=== PATIENT | female | born 2000 | race Caucasian/White ===

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

== ENCOUNTER 2022-03-14 16:13 | Emergency (ER) | payer OTHER, SELFPAY ==
[2022-03-14 16:20] VITALS: BP 114/72; PULSE 78; RESP 14; TEMP 36.7; O2SAT 98; BMI 20.1
--- NOTE | 2022-03-14 18:43 | CTR_ITS ---
PROCEDURE INFORMATION: Exam: CT Head Without Contrast Exam date and time: 03/14/2022 7:09 PM Age: 21 years old Clinical indication: Pain; Headache; Other: Base of skull; Additional info: Head injury-- patient had a case of drinks fall on her head-- vomiting afterward TECHNIQUE: Imaging protocol: Computed tomography of the head without contrast. Radiation optimization: All CT scans at this facility use at least one of these dose optimization techniques: automated exposure control; mA and/or kV adjustment per patient size (includes targeted exams where dose is matched to clinical indication); or iterative reconstruction. COMPARISON: No relevant prior studies available. RADIATION DOSE METRICS: Total DLP (mGy-cm): 1041.78 FINDINGS: Brain: Normal. No hemorrhage. Unremarkable white matter. No mass effect. Cerebral ventricles: No ventriculomegaly. Paranasal sinuses: Visualized sinuses are unremarkable. No fluid levels. Mastoid air cells: Visualized mastoid air cells are well aerated. Bones/joints: Unremarkable. No acute fracture. Soft tissues: Unremarkable. CT/CT head wo con* [id number] IMPRESSION: No acute intracranial abnormality.
--- NOTE | 2022-03-14 18:43 | CTR_ITS ---
PROCEDURE INFORMATION: Exam: CT Cervical Spine Without Contrast Exam date and time: 03/14/2022 7:12 PM Age: 21 years old Clinical indication: Injury or trauma; Other: Case of drinks fell on back of head; Work related; Blunt trauma; Prior surgery; Surgery date: 6+ months; Surgery type: Patient had case of drinks-- fall on back of head. Vomited afterwards; Additional info: Head injury TECHNIQUE: Imaging protocol: Computed tomography of the cervical spine without contrast. Radiation optimization: All CT scans at this facility use at least one of these dose optimization techniques: automated exposure control; mA and/or kV adjustment per patient size (includes targeted exams where dose is matched to clinical indication); or iterative reconstruction. COMPARISON: CT head wo con* [id number] 03/14/2022 7:09 PM RADIATION DOSE METRICS: Total DLP (mGy-cm): 160.37 FINDINGS: Bones/joints: No acute fracture. Normal alignment. Discs/Spinal canal/Neural foramina: No significant disc protrusion. No severe spinal canal stenosis. No significant neural foraminal narrowing. Lungs: Lung apices are normal. Lymph nodes: Prominent cervical lymph nodes are most likely reactive. Soft tissues: Unremarkable. CT/CT cervical spin wo con* [id number] IMPRESSION: No fracture or acute finding.
--- NOTE | 2022-03-14 18:55 | W.ED.HEATRA ---
HPI - Head Injury General: Chief complaint: Head Injury Stated complaint: head injury Time Seen by Provider: 03/14/22 18:55 Source: patient Mode of arrival: ambulatory Limitations: no limitations History of Present Illness: Patient is a 21-year-old female presents to ED today for Worker's Comp. incident regarding head injury. Patient states just prior to arrival she was working at [employer] when a bundle of 8 two liter soda bottles fell on top of her head. No LOC. She does complain of a headache and some neck pain. She also states she is having a little bit of blurry vision and confusion. She answers all questions appropriately. She is ambulatory without difficulty here. Complaint: head injury Onset (ago): hour(s) Mechanism of Injury: work related injury Place: work Loss of Consciousness: no Severity: moderate Radiation: none Other Injuries: none Associated symptoms: Reports no associated symptoms, confusion and neck pain; Deny vertigo Review of Systems Eyes: Reports: change in vision; Denies: blurry vision, photophobia, floaters or seeing flashes Musc: Reports: neck pain; Denies: back pain, extremity pain or joint pain Neuro: Reports: headache(s) and confusion; Denies: numbness in extremities, weakness in extremities, sensory changes, lack of coordination, difficulty walking, frequent falls, dizziness, vertigo, behavioral changes, Slurred speech present, difficulty communicating thoughts, seizure-like activity or involuntary movements PFS ED PFSH: Medical History Psychiatric care Social History Smoking and tobacco status: current every day smoker cigarettes Packs smoked per day: 0.25 Years cigarettes smoked: 6 and e-cigarettes E-Cigarette Details: e-cigarette and with nicotine Quit status (tobacco): has tried quititng Number of times tried to quit tobacco: 3 Second hand smoke exposure: Yes Female Reproductive History: Date of last menstrual period: 04/05/20 Physical Exam Const: COMMON NORMALS: no acute distress, average body habitus, patient oriented x3, no limitations, healthy appearing, alert and well nourished GENERAL APPEARANCE: cooperative ORIENTATION/CONSCIOUSNESS: Yes awake, Yes oriented to person, Yes oriented to place and Yes oriented to time HENMT: COMMON NORMALS: normocephalic and atraumatic HEAD & SCALP: normal to inspection, normocephalic and atraumatic FACE & SINUS: normal facial exam Eye: COMMON NORMALS: Equal, round and reactive pupils present and EOMs intact bilaterally GENERAL EYE: appearance normal, both eyes and all related structures and normal light reflex VISUAL ACUITY: Yes acuity normal VISUAL CERON: No peripheral vision loss and No central vision loss PUPIL: Yes Equal, round and reactive pupils present DIRECT OPHTHALMOSCOPY: Yes normal light reflex Neck/C-Spine: COMMON NORMALS: full ROM CERVICAL SPINE: Yes cervical ROM normal, Yes pain with cervical ROM, No Cervical spine tenderness, No step off deformity and No Paracervical muscle tenderness Resp: COMMON NORMALS: normal respiratory effort and clear to auscultation bilaterally AUSCULTATION: clear to auscultation bilaterally Cardio: COMMON NORMALS: regular rate and regular rhythm RATE: regular rate RHYTHM: regular rhythm Neuro: CINTHIA COMA SCALE: document GCS findings Cinthia coma scale eye opening: Spontaneous [place] coma scale verbal response: Orientated Cinthia coma scale motor response: Obey commands Cinthia coma scale total score: 15 COMMON NORMALS: patient oriented x3, CN's II-XII intact bilaterally, moves all extremities, no focal motor deficits, no sensory deficits noted and gait normal SENSORIUM/ORIENTATION: Yes alert, Yes oriented to person, Yes oriented to place and Yes oriented to time COORDINATION/BALANCE: [id number] test normal SPEECH: speech normal GAIT: Yes Normal gait present COORDINATION: [id number] test normal Skin: TRAUMA: no lacerations or abrasions Course Vital Signs: Vital signs: Vital Signs Temperature 98.1 F 03/14/22 20:06 Pulse Rate 78 03/14/22 20:06 Respiratory Rate 14 03/14/22 20:06 Blood Pressure 114/72 03/14/22 20:06 Pulse Oximetry 98 03/14/22 20:06 Oxygen Delivery Me thod 03/14/22 20:06 MDM - Head Injury Medcial Decision Making CTs negative. Recommend she follow up with Workers Comp as directed. Return to ED precautions given. Lab Data Radiology Impressions Cervical Spine CT 03/14/22 18:43 IMPRESSION: No fracture or acute finding. Head CT 03/14/22 18:43 IMPRESSION: No acute intracranial abnormality. Discharge Plan Discharge Patient Disposition: Home Clinical Impression: Minor closed head injury Contusion of scalp Qualifiers: Encounter type: initial encounter Qualified Code(s): S00.03XA - Contusion of scalp, initial encounter Condition: Stable Prescriptions: No Action medroxyprogesterone [Depo-Provera] 150 mg/mL suspension IM .Q 3 Months bupropion HCl [Wellbutrin XL] 150 mg tablet extended release 24 hr 150 mg PO QAM Qty: 30 2RF fluoxetine [Prozac] 40 mg capsule 40 mg PO DAILY Qty: 30 2RF trazodone 50 mg tablet 100 mg PO .HS PRN (Reason: insomnia) Qty: 60 2RF hydroxyzine HCl 10 mg tablet 10 mg PO TID PRN (Reason: anxiety) Qty: 90 2RF Discharge Orders: Discharge ED (Routine); Ordered 03/14/22 Ordered By: Elham Mtz Activity Restrictions/Additional Instructions: Please follow-up with Worker's Comp. as directed. 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
[2022-03-14 20:06] VITALS: BP 114/72; PULSE 78; RESP 14; TEMP 36.7; O2SAT 98
== END 2022-03-14 20:30 | disposition home or self-care (01) ==
PROVIDERS: Emergency Provider Physician Assistant
DX: S00.03XA Contusion of scalp, initial encounter (principal); S09.8XXA Other specified injuries of head, initial encounter; F17.210 Nicotine dependence, cigarettes, uncomplicated; W20.8XXA Other cause of strike by thrown, projected or falling object, initial encounter; Y99.0 Civilian activity done for income or pay; Y92.511 Restaurant or cafe as the place of occurrence of the external cause
CPT/HCPCS: 70450; 72125; 99284

== ENCOUNTER 2022-06-16 11:36 | Emergency (ER) | payer MEDICAID, SELFPAY ==
[2022-06-16 11:41] VITALS: BP 114/74; PULSE 99; RESP 14; TEMP 37; O2SAT 99; BMI 24.3
--- NOTE | 2022-06-16 12:09 | ED_ITS ---
HPI - Nausea/Vomiting/Diarrhea General: Chief complaint: Nausea/Vomiting/Diarrhea Stated complaint: n/v post new medication Time Seen by Provider: 06/16/22 12:09 Source: patient History of Present Illness: 21-year-old female presents with complaints initially of having some diarrhea this morning and then she took her first dose of the new medicine and started on, Zoloft 50 mg. After this she started getting nauseous had a couple episodes of vomiting and still nauseous now. She denies any medication melena hematemesis Shine was no fever no dysuria urgency or frequency. No productive cough. MD elicited complaint: nausea, vomiting and diarrhea Onset (ago): hour(s) Description of vomiting: food contents and watery Description of diarrhea: watery and semi-solid Associated nausea: Yes Associated abdominal pain: Yes Location of pain: Diffuse Severity: moderate Quality: cramping Exacerbating factors: none Relieving factors: none Context: new medication Associated symtoms: Reports anxiety, anorexia and nausea; Denies bloating, change in vision, chest pain, cough, diaphoresis, decreased urine output, dizziness, dysuria, epistaxis, fatigue, fecal incontinence, fevers/chills, headache(s), malaise, myalgias, numbness, palpitations, rash, short of breath, syncope, tenesmus, tinnitus or weakness Review of Systems Const: Denies: fever(s), chills, fatigue, malaise or diaphoresis Eyes: Denies: change in vision ENMT: Denies: tinnitus or epistaxis Card: Denies: chest pain, palpitations or syncope Resp: Denies: dyspnea, productive cough or non-productive cough GI: Reports: abdominal pain, nausea, vomiting and diarrhea; Denies: bloating or fecal incontinence : Denies: dysuria Skin/Breast: Denies: rash or pruritus Neuro: Denies: headache(s) or dizziness Psych: Reports: anxiety PFSH ED PFSH: Medical History Generalized anxiety disorder Major depressive disorder, recurrent episode with anxious distress Marijuana smoker, episodic Nicotine dependence, cigarettes, uncomplicated Post-traumatic stress disorder, chronic Psychiatric care Social History Smoking and tobacco status: current every day smoker cigarettes Packs smoked per day: 0.25 Years cigarettes smoked: 6 and e-cigarettes E-Cigarette Details: e-cigarette and with nicotine Quit status (tobacco): has tried quititng Number of times tried to quit tobacco: 3 Second hand smoke exposure: Yes Female Reproductive History: Date of last menstrual period: 04/05/20 Physical Exam Const: COMMON NORMALS: no acute distress GENERAL APPEARANCE: cooperative and comfortable ORIENTATION/CONSCIOUSNESS: Yes awake, Yes oriented to person, Yes oriented to place and Yes oriented to time HENMT: COMMON NORMALS: normocephalic, atraumatic and hearing grossly normal bilaterally HEAD & SCALP: normocephalic and atraumatic Resp: COMMON NORMALS: normal respiratory effort, No retractions, No use of accessory muscles and clear to auscultation bilaterally AUSCULTATION: clear to auscultation bilaterally Cardio: COMMON NORMALS: regular rate, regular rhythm and No murmurs present (Cardio) RATE: regular rate RHYTHM: regular rhythm GI: COMMON NORMALS: Soft to palpation and No hepatosplenomegaly present AUSCULTATION: Yes normoactive bowel sounds PALPATION: Yes Soft to palpation, No Tenderness to palpation present (GI), No Guarding due to palpation present (GI) and Yes No hepatosplenomegaly present Extremity: COMMON NORMALS: normal to inspection, capillary refill normal, no clubbing, cyanosis or edema, no calf tenderness and no pedal edema Neuro: SENSORIUM/ORIENTATION: Yes oriented to person, Yes oriented to place and Yes oriented to time Skin: COMMON NORMALS: no rashes or lesions noted GENERAL SKIN EXAM: no rashes or lesions noted Course Vital Signs: Vital signs: Vital Signs Temperature 98.6 F 06/16/22 13:00 Pulse Rate 99 06/16/22 13:00 Respiratory Rate 14 06/16/22 13:00 Blood Pressure 114/74 06/16/22 13:00 Pulse Oximetry 99 06/16/22 13:00 Oxygen Delivery Me thod 06/16/22 11:41 MDM - Nausea/Vomiting/Diarrhea Medical Decision Making Suspect patient had a gastroenteritis and it was exacerbated by taking the Zoloft. Vital signs are stable. She had some nausea while she is here but not actually vomited anything we will discharge her home with antiemetics hold off on the Zoloft for a week and then restart by taking 25 mg half tablet daily for 6 to 8 days then increase to a full tablet daily follow-up with primary care clear liquid diet for the remainder of today. Medical Records I reviewed the patient's medical records. Lab Data I reviewed the patient's lab results. Discharge Plan Discharge Patient Disposition: Home Clinical Impression: Gastroenteritis, Side effect of medication Condition: Stable Prescriptions: New promethazine 25 mg tablet 25 mg PO Q6H PRN (Reason: nausea and vomiting) Qty: 20 0RF No Action medroxyprogesterone [Depo-Provera] 150 mg/mL suspension IM .Q 3 Months sertraline [Zoloft] 50 mg tablet 50 mg PO .morning Qty: 30 1RF Rx Instructions: Take one tablet every morning acetaminophen [Tylenol Extra Strength] 500 mg tablet 500 mg PO Q6H PRN ibuprofen 200 mg tablet 400 mg PO Q6H PRN Nauzene Upset Stomach-Nausea 230 mg tablet,chewable PO PRN hydroxyzine HCl 25 mg tablet 25 mg PO DAILY PRN (Reason: anxiety) Qty: 30 1RF Rx Instructions: Take one tablet daily as needed for anxiety Discharge Orders: Discharge ED (Routine); Ordered 06/16/22 Ordered By: Jairon Stephen Discharge Diet: Clear Liquid Discharge Activity: Increase activity as tolerated Patient Instructions: Opioid Safety, Pain Management Activity Restrictions/Additional Instructions: Based on your presentation history believe you had a stomach flu that because of the diarrhea in the morning this was exacerbated by taking the Zoloft. The main side effect of Zoloft initially when people start it is GI upset. Usually the GI side effects from Zoloft resolve the longer a person is taking the medication. Clear liquid diet for 24 to 48 hours and advance as tolerated. Use the promethazine as needed for nausea and vomiting. Hold Zoloft for 1 week and then resume at half a tablet (25 mg) daily for 6 to 8 days then increase to full tablet daily. 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
[2022-06-16] MEDS: promethazine 25 mg/mL SDV 1 mL IM (12:35)
[2022-06-16 13:00] VITALS: BP 114/74; PULSE 99; RESP 14; TEMP 37; O2SAT 99
== END 2022-06-16 13:05 | disposition home or self-care (01) ==
PROVIDERS: Emergency Provider Family Medicine
DX: K52.9 Noninfective gastroenteritis and colitis, unspecified (principal); T43.225A Adverse effect of selective serotonin reuptake inhibitors, initial encounter; F17.210 Nicotine dependence, cigarettes, uncomplicated
CPT/HCPCS: 96372; 99284; J2550

== ENCOUNTER 2022-09-30 15:07 | Outpatient (CLI) | payer MEDICAID, SELFPAY ==
--- NOTE | 2022-09-30 | XRR_ITS ---
PROCEDURE INFORMATION: Exam: XR Chest Exam date and time: 09/30/2022 3:17 PM Age: 22 years old Clinical indication: Cough; Additional info: Chronic cough TECHNIQUE: Imaging protocol: Radiologic exam of the chest. Views: 2 views. COMPARISON: CR (CHEST, ) 05/15/2021 4:22 AM FINDINGS: Lungs: Nipple shadow is again seen projecting over the left lower lung. No consolidation. Pleural spaces: Unremarkable. No pleural effusion. No pneumothorax. Heart/Mediastinum: Unremarkable. No cardiomegaly. Bones/joints: Unremarkable. XR/XR chest 2V* [id number] IMPRESSION: No acute findings.
== END 2022-09-30 15:08 | disposition home or self-care (01) ==
PROVIDERS: Visit Provider Otolaryngology
DX: R05.3 Chronic cough (principal)
CPT/HCPCS: 71046

== ENCOUNTER 2022-12-31 12:46 | Emergency (ER) | payer MEDICAID, SELFPAY ==
[2022-12-31 12:52] VITALS: BP 95/63; PULSE 96; RESP 14; TEMP 36.7; O2SAT 97; BMI 17.9
--- NOTE | 2022-12-31 13:04 | XRR_ITS ---
PROCEDURE INFORMATION: Exam: XR Left Foot Exam date and time: 12/31/2022 12:09 PM Age: 22 years old Clinical indication: Injury or trauma; Fall; Sprain or strain; Foot; Left; Additional info: Pain/swelling/injury TECHNIQUE: Imaging protocol: Radiologic exam of the left foot. Views: 3 or more views. COMPARISON: No relevant prior studies available. FINDINGS: Bones/joints: Questionable nondisplaced fracture at the base of the 1st metatarsal versus prominent nutrient channel. Otherwise, the rest of the osseous structures of the foot are preserved. Soft tissues: Soft tissue swelling around the dorsal and midfoot. XR/XR foot LT min 3V* [id number] IMPRESSION: Questionable nondisplaced fracture at the base of the 1st metatarsal versus prominent nutrient channel. Correlate for point tenderness.
--- NOTE | 2022-12-31 13:41 | ED_ITS ---
HPI - Extremity Injury (Lower) General: Chief Complaint: Extremity Injury, Lower Stated Complaint: left foot injury Time Seen by Provider: 12/31/22 12:47 Source: patient Mode of arrival: wheelchair Limitations: no limitations History of Present Illness: Patient is a 22-year-old female presents to ED today for evaluation of a left foot injury. Patient states she was giving a young child a piggyback ride when she somehow fell and twisted the left foot. She has noticed pain and swelling to the dorsum of her foot since. Limited weightbearing secondary to pain. No other injuries or complaints at this time. complaint: foot injury Onset (ago): day(s) (yesteday) Injury: Left: foot Place: home Severity: moderate Relieving factors: immobilization Exacerbating factors: weight bearing, movement and palpation Context: fall Associated symptoms: Reports inability to bear weight Other symptoms: none Review of Systems Musc: Reports: extremity pain (L foot) and extremity swelling (L foot); Denies: joint redness or joint warmth Neuro: Denies: numbness in extremities or sensory changes [facility] ED PFSH: Medical History Bipolar disorder, current episode depressed, severe, without psychotic features Generalized anxiety disorder Marijuana smoker, episodic Nicotine dependence, cigarettes, uncomplicated Post-traumatic stress disorder, chronic Psychiatric care Social History Smoking and tobacco status: current every day smoker cigarettes Packs smoked per day: 0.25 Years cigarettes smoked: 6 and e-cigarettes E-Cigarette Details: e-cigarette and with nicotine Quit status (tobacco): has tried quititng Number of times tried to quit tobacco: 3 Second hand smoke exposure: Yes Physical Exam Const: COMMON NORMALS: no acute distress, average body habitus, no limitat ions, healthy appearing, alert and well nourished Extremity: COMMON NORMALS: capillary refill normal GENERAL: Yes normal exam except as noted LEFT LOWER EXTREMITY: Yes foot & digits OTHER: pt with pain and swelling throughout dorsum of L foot; most of pain seems to be medial; no obvious bony deformities noted; no toe/digit pain; NV intact Neuro: COMMON NORMALS: moves all extremities, no focal motor deficits and no sensory deficits noted SENSORIUM/ORIENTATION: Yes alert Skin: TRAUMA: no lacerations or abrasions Course Vital Signs: Vital signs: Vital Signs Temperature 98.1 F 12/31/22 12:52 Pulse Rate 96 12/31/22 12:52 Respiratory Rate 14 12/31/22 12:52 Blood Pressure 95/63 12/31/22 12:52 Pulse Oximetry 97 12/31/22 12:52 Oxygen Delivery Me thod Room Air 12/31/22 12:52 MDM - Extremity Injury (Lower) Medical Decision Making XR showing questionable nondisplaced fracture at the base of her first metatarsal. She is tender here on exam therefore she will be splinted and we will have her follow-up with orthopedics/podiatry. Lab Data Radiology Impressions Foot X-Ray 12/31/22 13:04 IMPRESSION: Questionable nondisplaced fracture at the base of the 1st metatarsal versus prominent nutrient channel. Correlate for point tenderness. Discharge Plan Discharge Patient Disposition: Home Clinical Impression: Closed fracture of first metatarsal bone Qualifiers: Encounter type: initial encounter Fracture alignment: nondisplaced Laterality: left Qualified Code(s): S92.315A - Nondisplaced fracture of first metatarsal bone, left foot, initial encounter for closed fracture Condition: Stable Prescriptions: No Action medroxyprogesterone [Depo-Provera] 150 mg/mL suspension IM .Q 3 Months quetiapine [Seroquel] 25 mg tablet 25 mg PO BEDTIME Qty: 14 1RF Rx Instructions: Take one tablet at bedtime acetaminophen [Tylenol Extra Strength] 500 mg tablet 500 mg PO Q6H PRN ibuprofen 200 mg tablet 400 mg PO Q6H PRN Nauzene Upset Stomach-Nausea 230 mg tablet,chewable PO PRN hydroxyzine HCl 25 mg tablet 25 mg PO DAILY PRN (Reason: anxiety) Qty: 30 1RF Rx Instructions: Take one tablet daily as needed for anxiety promethazine 25 mg tablet 25 mg PO Q6H PRN (Reason: nausea and vomiting) Qty: 20 0RF Discharge Orders: Discharge ED (Routine); Ordered 12/31/22 Ordered By: Elham Mtz Referrals: Fidelia Herr DO [Primary Care Provider] - Patient Instructions: Foot Fracture in Adults (ED) Activity Restrictions/Additional Instructions: As we discussed no weightbearing and stay in your splint until told otherwise by orthopedics/podiatry. Case management should be reaching out to you shortly to help set you up with this appointment. 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
--- NOTE | 2023-01-01 07:38 | DCPLANNER ---
Addendum entered by Genesis Alvarez 01/03/23 13:06: Patient had a follow up appointment scheduled with ortho - patient did attend appointment. Original Note: energy project manager had message to schedule a follow up appointment for patient with podiatry. energy project manager sent patients information to the front office staff at podiatry. Patients information will be printed and reviewed. Clinic will call patient with appointment information.
== END 2022-12-31 14:40 | disposition home or self-care (01) ==
PROVIDERS: Emergency Provider Physician Assistant; PCP Family Medicine
DX: S92.315A Nondisplaced fracture of first metatarsal bone, left foot, initial encounter for closed fracture (principal); F17.210 Nicotine dependence, cigarettes, uncomplicated; X50.1XXA Overexertion from prolonged static or awkward postures, initial encounter
CPT/HCPCS: 73630; 99283; E0114

== ENCOUNTER → 2023-01-02 10:12 | Outpatient (BNVA) | payer MEDICAID, SELFPAY | PROVIDERS: PCP Family Medicine; Visit Provider Podiatrist Foot & Ankle Surgery | DX: S92.315A Nondisplaced fracture of first metatarsal bone, left foot, initial encounter for closed fracture (principal); R60.9 Edema, unspecified; W18.30XA Fall on same level, unspecified, initial encounter; X50.1XXA Overexertion from prolonged static or awkward postures, initial encounter | CPT/HCPCS: 73630 ==

== ENCOUNTER 2023-01-02 11:53 | Outpatient (CLI) | payer MEDICAID, SELFPAY | END 2023-01-02 11:54 | disposition home or self-care (01) | LOC: SPT 11:55 | PROVIDERS: PCP Family Medicine; Visit Provider Podiatrist Foot & Ankle Surgery | DX: Z46.89 Encounter for fitting and adjustment of other specified devices (principal); M79.672 Pain in left foot | CPT/HCPCS: 97760; L4361 ==

== ENCOUNTER → 2023-01-24 10:42 | Outpatient (BNVA) | payer MEDICAID, SELFPAY | PROVIDERS: PCP Family Medicine; Visit Provider Podiatrist Foot & Ankle Surgery | DX: S92.315A Nondisplaced fracture of first metatarsal bone, left foot, initial encounter for closed fracture (principal); W01.0XXA Fall on same level from slipping, tripping and stumbling without subsequent striking against object, initial encounter; R60.9 Edema, unspecified | CPT/HCPCS: 73630 ==

== ENCOUNTER → 2023-02-07 10:42 | Outpatient (BNVA) | payer MEDICAID, SELFPAY | PROVIDERS: PCP Family Medicine; Visit Provider Podiatrist Foot & Ankle Surgery | DX: S92.315D Nondisplaced fracture of first metatarsal bone, left foot, subsequent encounter for fracture with routine healing (principal); X58.XXXD Exposure to other specified factors, subsequent encounter | CPT/HCPCS: 73630; 99213 ==

== ENCOUNTER → 2023-03-14 10:36 | Outpatient (BNVA) | payer MEDICAID, SELFPAY | PROVIDERS: PCP Family Medicine; Visit Provider Podiatrist Foot & Ankle Surgery | DX: S92.315D Nondisplaced fracture of first metatarsal bone, left foot, subsequent encounter for fracture with routine healing; X58.XXXD Exposure to other specified factors, subsequent encounter; R60.9 Edema, unspecified | CPT/HCPCS: 73630; 99213 ==

== ENCOUNTER 2023-04-26 15:52 | Emergency (ER) | payer SELFPAY ==
[2023-04-26 15:54] VITALS: BP 112/76; PULSE 95; RESP 18; TEMP 36.8; O2SAT 100; BMI 18.3
--- NOTE | 2023-04-26 16:04 | W.ED.ARRPALP ---
HPI - Arrhythmia/Palpitations General: Chief Complaint: Arrhythmia/Palpitations Stated Complaint: tachycardia Time Seen by Provider: 04/26/23 15:55 Source: patient Mode of arrival: ambulatory History of Present Illness: 22-year-old female presented to the emergency room via one of the urgent care clinic swelling. She presented to the outlying clinic with complaints of a rapid racing heart rate. She has had this past and had work-up before Holter monitor done recently showed sinus tachycardia. She had been drinking heavily the night before. She is complaining some mild chest tightness she denies any hematochezia melena hematemesis or coffee-ground emesis. MD complaint: rapid heart beat and heart racing Onset (ago): hour(s) Duration: constant Severity: mild Context: occurred during rest Arrhythmia history: other (Sinus tachycardia) Associated symptoms: Deny anxiety, cough, diaphoresis, muscle cramps, nausea, paresthesias, pre-syncope, sense of impending doom, short of breath, syncope or vomiting Review of Systems Const: Denies: fever(s), chills, fatigue, malaise or diaphoresis ENMT: Denies: throat pain, ear or mastoid pain, nasal discharge or nasal congestion Card: Reports: palpitations; Denies: chest pain, edema, syncope or pre-syncope Resp: Denies: dyspnea, productive cough or non-productive cough GI: Denies: abdominal pain, nausea or vomiting : Denies: flank pain, difficulty voiding, dysuria, urinary frequency or urinary urgency Musc: Denies: neck pain, back pain or muscle cramps Skin/Breast: Denies: rash or pruritus Psych: Denies: anxiety [facility] ED PFSH: Medical History Bipolar disorder, current episode depressed, severe, without psychotic features Generalized anxiety disorder Marijuana smoker, episodic Nicotine dependence, cigarettes, uncomplicated Post-traumatic stress disorder, chronic Psychiatric care Social History Smoking and tobacco status: current every day smoker cigarettes Packs smoked per day: 0.25 Years cigarettes smoked: 6 and e-cigarettes E-Cigarette Details: e-cigarette and with nicotine Quit status (tobacco): has tried quititng Number of times tried to quit tobacco: 3 Second hand smoke exposure: Yes Physical Exam Const: GENERAL APPEARANCE: cooperative and comfortable ORIENTATION/CONSCIOUSNESS: Yes awake, Yes oriented to person, Yes oriented to place and Yes oriented to time HENMT: COMMON NORMALS: normocephalic, atraumatic and hearing grossly normal bilaterally HEAD & SCALP: normocephalic and atraumatic Resp: COMMON NORMALS: normal respiratory effort, No retractions, No use of accessory muscles and clear to auscultation bilaterally AUSCULTATION: clear to auscultation bilaterally Cardio: COMMON NORMALS: regular rhythm and No murmurs present (Cardio) RATE: tachycardic RHYTHM: regular rhythm GI: COMMON NORMALS: Soft to palpation and No hepatosplenomegaly present AUSCULTATION: Yes normoactive bowel sounds PALPATION: Yes Soft to palpation, No Tenderness to palpation present (GI), No Guarding due to palpation present (GI) and Yes No hepatosplenomegaly present Extremity: COMMON NORMALS: normal to inspection, capillary refill normal, no clubbing, cyanosis or edema, no calf tenderness and no pedal edema Neuro: SENSORIUM/ORIENTATION: Yes oriented to person, Yes oriented to place and Yes oriented to time Skin: COMMON NORMALS: no rashes or lesions noted GENERAL SKIN EXAM: no rashes or lesions noted Course Vital Signs: Vital signs: Vital Signs Temperature 98.2 F 04/26/23 15:54 Pulse Rate 100 04/26/23 18:22 Respiratory Rate 16 04/26/23 18:22 Blood Pressure 115/74 04/26/23 18:22 Pulse Oximetry 100 04/26/23 18:22 Oxygen Delivery Me thod Room Air 04/26/23 17:10 MDM - Arrhythmia/Palpitations Medical Decision Making Sinus tachycardia suspect of some volume depletion associated alcohol use is also probably triggered it. Patient has had this in the past work-up has been benign no acute changes in her labs or her EKG. Patient given IV fluids she is improved cautioned against alcohol stimulating drinks also consider abstaining from marijuana. Discharge home with follow-up with primary care as needed. Medical Records I reviewed the patient's medical records. Lab Data I reviewed the patient's lab results. 04/26/23 15:44 04/26/23 15:44 Laboratory Results WBC 12.42 10^3/uL (4.5-13.0) 04/26/23 15:44 RBC 4.46 10^6/uL (3.85-5.65) 04/26/23 15:44 Hgb 12.60 g/dL (12.4-14.8) 04/26/23 15:44 Hct 38.2 % (36-47) 04/26/23 15:44 MCV 85.7 fl (85-98) 04/26/23 15:44 MCH 28.3 pg (27-33) 04/26/23 15:44 MCHC 33.0 g/dL (30-55) 04/26/23 15:44 RDW 12.4 % (12.1-15.1) 04/26/23 15:44 Plt Count 348 10^3/cmm (157-399) 04/26/23 15:44 MPV 9.8 fL (7.4-10.4) 04/26/23 15:44 Neut % (Auto) 73.5 % 04/26/23 15:44 Lymph % (Auto) 20.2 % 04/26/23 15:44 [place] % (Auto) 4.9 % 04/26/23 15:44 Eos % (Auto) 0.2 % 04/26/23 15:44 Baso % (Auto) 0.8 % 04/26/23 15:44 Neut # (Auto) 9.12 10^3/uL (1.8-8.0) H 04/26/23 15:44 Lymph # (Auto) 2.5 10^3/uL (1.5-6.5) 04/26/23 15:44 [place] # (Auto) 0.6 10^3/uL (0.2-0.9) 04/26/23 15:44 Eos # (Auto) 0.0 10^3/uL (0.0-0.8) 04/26/23 15:44 Baso # (Auto) 0.1 10^3/uL (0.0-0.1) 04/26/23 15:44 Nucleated RBC % (auto) 0 % 04/26/23 15:44 Nucleated RBCs # 0.0 /100WBC 04/26/23 15:44 Sodium 139 mmol/L (136-145) 04/26/23 15:44 Potassium 3.3 mmol/L (3.5-5.1) L 04/26/23 15:44 Chloride 104 mmol/L (98-107) 04/26/23 15:44 Carbon Dioxide 21 mmol/L (22-29) L 04/26/23 15:44 Anion Gap 17.3 (5-19) 04/26/23 15:44 BUN 10 mg/dL (6-20) 04/26/23 15:44 Creatinine 0.8 mg/dL (0.5-0.9) 04/26/23 15:44 GFR Calculation 91.4 mL/min (90-130) 04/26/23 15:44 Glucose 149 mg/dL (65-115) H 04/26/23 15:44 Calculated Osmolality 290 mOsm/kg (285-295) 04/26/23 15:44 Calcium 9.1 mg/dL (8.5-10.5) 04/26/23 15:44 Total Bilirubin 0.5 mg/dL (0.15-1.2) 04/26/23 15:44 AST 16 U/L (0-32) 04/26/23 15:44 ALT 11 U/L (0-33) 04/26/23 15:44 Alkaline Phosphatase 69 U/L (35-105) 04/26/23 15:44 Total Protein 7.4 g/dL (6.6-8.7) 04/26/23 15:44 Albumin 4.7 g/dL (3.5-5.2) 04/26/23 15:44 Globulin 2.7 g/dL (1.3-4.6) 04/26/23 15:44 Lipase 19 U/L (13-60) 04/26/23 15:44 HCG, Qual Negative (Negative) 04/26/23 15:44 Urine Color Yellow (Yellow) 04/26/23 16:51 Urine Appearance Clear (CLEAR) 04/26/23 16:51 Urine pH 8 (5-7) H 04/26/23 16:51 Ur Specific Mercedes 1.010 (1.005-1.030) 04/26/23 16:51 Urine Protein Neg (Negative) 04/26/23 16:51 Urine Glucose (UA) Norm (Normal) 04/26/23 16:51 Urine Ketones Negative (Negative) 04/26/23 16:51 Urine Blood Neg (Negative) 04/26/23 16:51 Urine Nitrate Negative (Negative) 04/26/23 16:51 Urine Bilirubin Neg (Negative) 04/26/23 16:51 Prot Sulfosalicylic Acd Negative (Negative) 04/26/23 16:51 Urine Urobilinogen 1 mg/dL (Negative) H 04/26/23 16:51 Ur Leukocyte Esterase Negative (Negative) 04/26/23 16:51 Urine Opiates Screen Negative ng/mL (Negative) 04/26/23 16:51 Ur Barbiturates Screen Negative ng/mL (Negative) 04/26/23 16:51 Ur Phencyclidine Scrn Negative ng/mL (Negative) 04/26/23 16:51 Ur Amphetamines Screen Negative ng/mL (Negative) 04/26/23 16:51 U Benzodiazepines Scrn Negative ng/mL (Negative) 04/26/23 16:51 Urine Cocaine Screen Negative ng/mL (Negative) 04/26/23 16:51 U Marijuana (THC) Screen Positive ng/mL (Negative) H 04/26/23 16:51 Ethyl Alcohol < 10 mg/dL (0-10) 04/26/23 15:44 No radiology studies performed this visit Discharge Plan Discharge Patient Disposition: Home Clinical Impression: Sinus tachycardia Condition: Stable Prescriptions: New Pepcid 40 mg tablet 40 mg PO BID Qty: 60 0RF No Action medroxyprogesterone [Depo-Provera] 150 mg/mL suspension IM .Q 3 Months quetiapine [Seroquel] 25 mg tablet 25 mg PO BEDTIME Qty: 14 1RF Rx Instructions: Take one tablet at bedtime (DME) CAM Boot See Rx Instructions .Route .MEDSUPPLY Qty: 1 0RF Rx Instructions: As directed acetaminophen [Tylenol Extra Strength] 500 mg tablet 500 mg PO Q6H PRN ibuprofen 200 mg tablet 400 mg PO Q6H PRN Nauzene Upset Stomach-Nausea 230 mg tablet,chewable PO PRN hydroxyzine HCl 25 mg tablet 25 mg PO DAILY PRN (Reason: anxiety) Qty: 30 1RF Rx Instructions: Take one tablet daily as needed for anxiety promethazine 25 mg tablet 25 mg PO Q6H PRN (Reason: nausea and vomiting) Qty: 20 0RF Discharge Orders: Discharge ED (Routine); Ordered 09/22/23 Ordered By: Jairon Stephen Referrals: Fidelia Herr DO [Physician] - Discharge Diet: Clear Liquid Discharge Activity: Increase activity as tolerated Patient Instructions: Opioid Safety, Pain Management Activity Restrictions/Additional Instructions: Recommend abstaining from alcohol and marijuana products. Clear liquid diet for 48 hours then advance as tolerated you can use the promethazine previously prescribed for nausea start Pepcid 1 p.o. twice daily for the next month follow-up with your primary care doctor. 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
[2023-04-26 16:08] LABS: Basophils # 0.1 10^3/uL (0.0-0.1); Basophils % 0.8 %; Eosinophils % 0.2 %; Hematocrit 38.2 % (36-47); Lymphocytes # 2.5 10^3/uL (1.5-6.5); Lymphocytes % 20.2 %; Mean Corpuscular Hemoglobin 28.3 pg (27-33); Mean Corpuscular Volume 85.7 fl (85-98); Mean Platelet Volume 9.8 fL (7.4-10.4); Monocytes # 0.6 10^3/uL (0.2-0.9); Monocytes % 4.9 %; Neutrophils # 9.12 10^3/uL (1.8-8.0); Neutrophils % 73.5 %; Nucleated Red Blood Cells % 0 %; Platelet Count 348 10^3/cmm (157-399); Red Blood Count 4.46 10^6/uL (3.85-5.65); Red Cell Distribution Width 12.4 % (12.1-15.1); White Blood Count 12.42 10^3/uL (4.5-13.0)
[2023-04-26 16:13] VITALS: BP 119/76; PULSE 89; RESP 17; O2SAT 99
[2023-04-26] MEDS: sodium chloride 0.9% 1,000 ML 999 ML IV ×2 (16:18→17:55)
[2023-04-26] MEDS: ondansetron 2 mg/ML SDV 2 mL 4 MG IVP (16:18)
[2023-04-26 16:26] LABS: HCG, Serum Qual Negative (Negative)
[2023-04-26 16:31] LABS: Alanine Aminotransferase 11 U/L (0-33); Albumin Level 4.7 g/dL (3.5-5.2); Alkaline Phosphatase 69 U/L (35-105); Anion Gap 17.3 (5-19); Aspartate Amino Transferase 16 U/L (0-32); Blood Urea Nitrogen 10 mg/dL (6-20); Calcium 9.1 mg/dL (8.5-10.5); Carbon Dioxide 21 mmol/L (22-29); Chloride 104 mmol/L (98-107); Globulin 2.7 g/dL (1.3-4.6); Glomerular Filtration Rate 91.4 mL/min (90-130); Glucose 149 mg/dL (65-115); Lipase 19 U/L (13-60); Osmolality Calculated 290 mOsm/kg (285-295); Potassium 3.3 mmol/L (3.5-5.1); Sodium 139 mmol/L (136-145); Total Bilirubin 0.5 mg/dL (0.15-1.2); Total Protein 7.4 g/dL (6.6-8.7)
[2023-04-26 17:05] LABS: Add Urine Microscopic? NO; Charge for UA Resulting for Rev
[2023-04-26 17:10] VITALS: BP 104/67; PULSE 84; RESP 15; O2SAT 99
[2023-04-26 17:30] LABS: Bilirubin Urine Neg (Negative); Blood Urine Neg (Negative); Glucose Urine UA Norm (Normal); Ketones Urine Negative (Negative); Leukocyte Esterase Urine Negative (Negative); Nitrate Urine Negative (Negative); Protein Urine Neg (Negative); Sulfosalicylic Acid Urine Negative (Negative); Urine Appearance Clear (CLEAR); Urine Color Yellow (Yellow); Urobilinogen Urine 1 mg/dL (Negative); pH Urine 8 (5-7)
[2023-04-26 17:32] LABS: Amphetamines Screen Urine Negative (Negative); Barbiturates Screen Urine Negative (Negative); Benzodiazepines Screen Urine Negative (Negative); Cocaine Screen Urine Negative (Negative); Opiate Screen Urine Negative (Negative); PCP Screen Urine Negative (Negative); THC Screen Urine Positive (Negative)
[2023-04-26 17:50] LABS: Alcohol Level < 10 mg/dL (0-10)
[2023-04-26 18:22] VITALS: BP 115/74; PULSE 100; RESP 16; O2SAT 100
== END 2023-04-26 18:26 | disposition home or self-care (01) ==
PROVIDERS: Emergency Provider Family Medicine
DX: R00.0 Tachycardia, unspecified (principal); F17.210 Nicotine dependence, cigarettes, uncomplicated; F17.290 Nicotine dependence, other tobacco product, uncomplicated
CPT/HCPCS: 80053; 80306; 80307; 81003; 83690; 84703; 85025; 96361; 96374; 99284; J2405; J7030

== ENCOUNTER 2023-05-13 13:04 | Emergency (ER) | payer SELFPAY ==
--- NOTE | 2023-05-13 13:06 | XR_ITS ---
WS: [id number] PORTABLE CHEST HISTORY: cp COMPARISON: None available. Lungs are clear and well expanded. No pleural effusion or pneumothorax. Nipple shadow LEFT lung base. Cardiac size: Normal. Mediastinum/Aorta: Normal mediastinum. No osseous abnormality seen. IMPRESSION: Unremarkable portable chest.
--- NOTE | 2023-05-13 13:06 | ECG_ITS ---
[facility] Test Date: 2023-05-13 Pat Name: Rosalie Stallworth Department: Room: Gender: Female Warp Starter: : 2000 Requested By: Charline Willson Order Number: [id number] Shamika MD: Jarred Hidalgo M.D. Measurements Intervals [place] Rate: 76 P: 20 PA: 150 QRS: 81 QRSD: 79 T: 73 QT: 345 QTc: 388 Interpretive Statements SINUS RHYTHM WITH SINUS ARRHYTHMIA SEPTAL MYOCARDIAL INFARCTION , OF INDETERMINATE AGE [40+ ms Q WAVE IN V1/V2] Compared to ECG 05/15/2021 04:33:38 Myocardial infarct finding now present Electronically Signed On 05-13-2023 13:42:29 CDT by Jarred Hidalgo M.D. [id number]
[2023-05-13 13:08] VITALS: BP 121/86; PULSE 85; TEMP 36.9; O2SAT 98; BMI 16.2
--- NOTE | 2023-05-13 13:21 | ED_ITS ---
HPI - Arrhythmia/Palpitations General: Chief Complaint: Arrhythmia/Palpitations Stated Complaint: chest pain/heart flutters Time Seen by Provider: 05/13/23 13:08 Source: patient Mode of arrival: ambulatory Limitations: no limitations History of Present Illness: Patient is a 22-year-old female who presents the emergency room with chest tightness and palpitations. Patient states that she is under a lot of stress at this time; denies any SI or HI. States she has a lot of stress related to work and life in general. Patient reports chest tightness and palpitations occurring for the past couple weeks. States that she is unable to see [facility] for 6 to 8 months due to wait time. States no PCP due to insurance. Denies nausea, vomiting, chest pain, shortness of breath, or abdominal pain. No other complaints at this time. MD complaint: rapid heart beat, heart racing and palpitations Duration: intermittent Severity: moderate Context: occurred during rest Associated symptoms: Reports anxiety; Deny nausea or vomiting Review of Systems Const: Denies: fever(s) or chills Eyes: Denies: change in vision or blurry vision ENMT: Denies: throat pain or mouth pain Card: Reports: palpitations and lightheadedness; Denies: chest pain Resp: Denies: dyspnea or productive cough GI: Denies: abdominal pain, nausea or vomiting : Denies: flank pain or difficulty voiding Musc: Denies: neck pain or back pain Skin/Breast: Denies: rash or pruritus Neuro: Denies: headache(s) or numbness in extremities Psych: Reports: anxiety [facility] PFSH: Medical History Bipolar disorder, current episode depressed, severe, without psychotic features Generalized anxiety disorder Marijuana smoker, episodic Nicotine dependence, cigarettes, uncomplicated Post-traumatic stress disorder, chronic Psychiatric care Social History Smoking and tobacco status: current every day smoker cigarettes Packs smoked per day: 0.25 Years cigarettes smoked: 6 and e-cigarettes E-Cigarette Details: e-cigarette and with nicotine Quit status (tobacco): has tried quititng Number of times tried to quit tobacco: 3 Second hand smoke exposure: Yes Physical Exam Const: COMMON NORMALS: patient oriented x3 and alert GENERAL APPEARANCE: cooperative ORIENTATION/CONSCIOUSNESS: Yes awake, Yes oriented to person, Yes oriented to place and Yes oriented to time HENMT: COMMON NORMALS: normocephalic and Normal external nose present HEAD & SCALP: normocephalic NOSE: Normal external nose present Eye: COMMON NORMALS: Equal, round and reactive pupils present and EOMs intact bilaterally GENERAL EYE: appearance normal, both eyes and all related structures PUPIL: Yes Equal, round and reactive pupils present Neck/C-Spine: COMMON NORMALS: full ROM and no JVD Lymph: LYMPHATIC: no lymphadenopathy noted Chest: CHEST: Yes Symmetrical chest wall rise Resp: COMMON NORMALS: normal respiratory effort and clear to auscultation bilaterally EFFORT & INSPECTION: Yes symmetric chest movement AUSCULTATION: clear to auscultation bilaterally Cardio: COMMON NORMALS: no JVD, regular rate, regular rhythm, S1 normal heart sound present and Peripheral pulses 2+ throughout RATE: regular rate RHYTHM: regular rhythm HEART SOUNDS: S1 normal heart sound present PERIPHERAL PULSES: Peripheral pulses 2+ throughout GI: COMMON NORMALS: Normal to inspection, nondistended, normoactive bowel sounds present and Soft to palpation AUSCULTATION: Yes normoactive bowel sounds PALPATION: Yes Soft to palpation : COMMON NORMALS: Yes no CVA tenderness BLADDER/KIDNEY EXAM: Yes no CVA tenderness Back/Pelvis: COMMON NORMALS: no CVA tenderness Extremity: COMMON NORMALS: normal to inspection Neuro: COMMON NORMALS: patient oriented x3 SENSORIUM/ORIENTATION: Yes alert, Yes oriented to person, Yes oriented to place and Yes oriented to time SPEECH: speech normal GAIT: Yes Normal gait present MOTOR EXAM: 5/5 motor strength present throughout Psych: COMMON NORMALS: mental status grossly normal, Normal thought process present, cooperative and speech normal ATTITUDE: Yes Withdrawn affect present ACTIVITY/MOTOR BEHAVIOR: Yes appropriate eye contact SPEECH: Yes normal speech MOOD & AFFECT: Yes anxious THOUGHT PROCESS: Normal thought process present ATTENTION/CONCENTRATION: Yes attention grossly intact INSIGHT: Good insight present (Psych) JUDGEMENT: Good judgement present (Psych) Skin: COMMON NORMALS: no rashes or lesions noted GENERAL SKIN EXAM: no rashes or lesions noted Course Vital Signs: Vital signs: Vital Signs Temperature 98.4 F 05/13/23 13:08 Pulse Rate 78 05/13/23 13:42 Blood Pressure 112/82 10/09/23 13:42 Pulse Oximetry 97 05/13/23 13:42 Oxygen Delivery Me thod Room Air 05/13/23 13:08 MDM - Arrhythmia/Palpitations Medical Decision Making Patient presents here with some chest pain she has been under a lot of stress anxiety is likely anxiety induced her EKG x-ray here is normal no signs acute coronary syndrome or pulm embolism we will start hydroxyzine she is to follow-up with [facility] and to return if worsening Medical Records I reviewed the patient's medical records. All radiology interpretation(s) finalized by discharge Discharge Plan Discharge Patient Disposition: Home Clinical Impression: Anxiety Condition: Stable Prescriptions: New hydroxyzine HCl 50 mg tablet 50 mg PO Q8H PRN (Reason: anxiety) Qty: 20 0RF No Action medroxyprogesterone [Depo-Provera] 150 mg/mL suspension IM .Q 3 Months quetiapine [Seroquel] 25 mg tablet 25 mg PO BEDTIME Qty: 14 1RF Rx Instructions: Take one tablet at bedtime (DME) CAM Boot See Rx Instructions .Route .MEDSUPPLY Qty: 1 0RF Rx Instructions: As directed acetaminophen [Tylenol Extra Strength] 500 mg tablet 500 mg PO Q6H PRN ibuprofen 200 mg tablet 400 mg PO Q6H PRN Nauzene Upset Stomach-Nausea 230 mg tablet,chewable PO PRN hydroxyzine HCl 25 mg tablet 25 mg PO DAILY PRN (Reason: anxiety) Qty: 30 1RF Rx Instructions: Take one tablet daily as needed for anxiety promethazine 25 mg tablet 25 mg PO Q6H PRN (Reason: nausea and vomiting) Qty: 20 0RF Pepcid 40 mg tablet 40 mg PO BID Qty: 60 0RF Discharge Orders: Discharge ED (Routine); Ordered 05/13/23 Ordered By: Charline Willson Discharge Diet: Advance as tolerated Discharge Activity: Resume usual activity Patient Instructions: Anxiety (ED) 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
[2023-05-13 13:42] VITALS: BP 112/82; PULSE 78; O2SAT 97
== END 2023-05-13 13:43 | disposition home or self-care (01) ==
PROVIDERS: Emergency Provider Emergency Medicine
DX: F41.9 Anxiety disorder, unspecified (principal); F17.210 Nicotine dependence, cigarettes, uncomplicated; F17.290 Nicotine dependence, other tobacco product, uncomplicated
CPT/HCPCS: 71045; 93005; 99284

== ENCOUNTER 2023-09-09 08:58 | Outpatient (CLI) | payer OTHER, SELFPAY ==
--- NOTE | 2023-09-09 09:04 | US_ITS ---
WS: [id number] ULTRASOUND RIGHT BREAST HISTORY: LUMP IN BREAST COMPARISON: None available. TECHNIQUE: 2-D and Doppler. Ultrasound is directed to the 9:00 axis the RIGHT breast at the palpable area. By ultrasound there is no abnormality identified. Dense fibroglandular breast tissue. No distortion. No cystic or solid mas s. IMPRESSION: US/US breast RT limited* [id number] BI-RADS: 1-Negative FOLLOW-UP: See Report No ultrasound abnormality RIGHT breast at the area of interest. No additional i maging necessary.
== END 2023-09-09 08:59 | disposition home or self-care (01) ==
LOC: RAD 08:59
PROVIDERS: Visit Provider Advanced Practice Midwife
DX: N63.15 Unspecified lump in the right breast, overlapping quadrants (principal); R92.321 Mammographic fibroglandular density, right breast
CPT/HCPCS: 76642

== ENCOUNTER 2023-09-16 13:43 | Emergency (ER) | payer OTHER, SELFPAY ==
[2023-09-16 13:55] VITALS: BP 119/81; PULSE 95; RESP 14; TEMP 36.8; O2SAT 97; BMI 19.7
[2023-09-16 14:01] VITALS: BP 110/73; PULSE 102; RESP 13; O2SAT 98
--- NOTE | 2023-09-16 14:09 | ED_ITS ---
HPI - Dental/Oral General: Chief complaint: Dental/Oral Stated complaint: mouth pain Time Seen by Provider: 09/16/23 14:02 Source: patient Mode of arrival: ambulatory Limitations: no limitations History of Present Illness: Patient is a 23-year-old female presents to ED today with complaint of upper dental pain over the past 2 to 3 days. She states she has poor dentition and has had issues with her teeth previously but never to this extent. She states she can taste infection in her mouth. She has not noticed any swelling to her face or neck. She is eating and drinking normally. No complaints of difficulty swallowing or difficulty breathing. No fevers. MD Complaint: tooth pain (mouth pain) Onset (ago): day(s) Duration: constant Severity: severe Associated symptoms: Reports no associated symptoms; Denies ear or mastoid pain, fever(s) or odynophagia Treatment prior to arrival: none Review of Systems Const: Denies: fever(s), chills, body aches, fatigue or malaise ENMT: Reports: mouth pain and dental pain; Denies: throat pain, enlarged tonsils, odynophagia, bleeding gums, dry mouth, halitosis, ear or mastoid pain, nasal discharge, nasal congestion or sinus pain Card: Denies: chest pain Resp: Denies: dyspnea GI: Denies: nausea or vomiting Musc: Denies: neck pain Neuro: Denies: headache(s) or dizziness PFS ED PFSH: Medical History Major depressive disorder, recurrent episode with anxious distress Nicotine dependence, cigarettes, uncomplicated Generalized anxiety disorder Psychiatric care Social History Smoking and tobacco/nicotine status: current every day tobacco/nicotine user cigarettes Packs smoked per day: 0.25 Years cigarettes smoked: 6 and e- cigarettes E-Cigarette Details: e-cigarette and with nicotine Quit status (tobacco/nicotine): has tried quititng Number of times tried to quit tobacco: 3 Second hand smoke exposure: Yes Physical Exam Const: COMMON NORMALS: no acute distress, patient oriented x3, no limitations, alert and well nourished GENERAL APPEARANCE: cooperative ORIENTATION/CONSCIOUSNESS: Yes awake, Yes oriented to person, Yes oriented to place and Yes oriented to time HENMT: FACE & SINUS: normal facial exam, sinuses nontender and face symmetric MOUTH: Normal oral and palatal mucosa present and lip normal TEETH & GINGIVA: Yes caries, Yes gingiva abnormal, Yes poor dentition and Yes other (significant widespread dental caries with severe gingivitis) THROAT: posterior oropharynx normal and tonsils normal Neck/C-Spine: COMMON NORMALS: no lymphadenopathy GENERAL: No anterior neck swelling and No submandibular swelling Resp: COMMON NORMALS: normal respiratory effort Cardio: COMMON NORMALS: regular rate and regular rhythm RATE: regular rate RHYTHM: regular rhythm Neuro: COMMON NORMALS: patient oriented x3 and CN's II-XII intact bilaterally SENSORIUM/ORIENTATION: Yes alert, Yes oriented to person, Yes oriented to place and Yes oriented to time Course Vital Signs: Vital signs: Vital Signs Temperature 98.3 F 09/16/23 13:55 Pulse Rate 102 H 09/16/23 14:01 Respiratory Rate 13 09/16/23 14:01 Blood Pressure 110/73 09/16/23 14:01 Pulse Oximetry 98 09/16/23 14:01 Oxygen Delivery Me thod Room Air 09/16/23 14:01 MDM - Dental/Oral Medical Decision Making Patient has significant widespread dental decay/caries with severe gingivitis. Other DDx includes gingivostomatitis. She has no systemic symptoms or prodromal symptoms. Will treat with chlorhexidine oral rinse, placed on antibiotics, she is requesting something for pain. She was given a list of dental resources as well as additional dental clinics in town that she was encouraged to reach out to for follow-up. Return ED precautions given. Differential Diagnosis Likely gingival abscess, dental caries, toothache and dental abscess Medical Records I reviewed the patient's medical records. No radiology studies performed this visit Discharge Plan Discharge Patient Disposition: Home Clinical Impression: Toothache, Dental caries, Gingivitis Condition: Stable Prescriptions: New Peridex 0.12 % mouthwash 15 ml buccal BID Qty: 118 0RF Rx Instructions: Swish in mouth as long as possible-ideally 1-2 minutes then spit penicillin V potassium 500 mg tablet 500 mg PO Q8H 7 Days Qty: 21 0RF acetaminophen-codeine 300-30 mg tablet 1 tab PO Q6H PRN (Reason: pain) Qty: 8 0RF No Action hydroxyzine HCl 10 mg tablet 10 mg PO TID PRN (Reason: anxiety) Qty: 90 3RF Rx Instructions: May take one tablet three times per day as needed for anxiety cyproheptadine 4 mg tablet 4 mg PO BEDTIME Qty: 30 2RF Rx Instructions: Take one tablet at bedtime sertraline [Zoloft] 25 mg tablet 25 mg PO .morning Qty: 30 2RF Rx Instructions: Take one tablet every morning Discharge Orders: Discharge ED (Routine); Ordered 09/16/23 Ordered By: Elham Mtz Patient Instructions: Dental Caries (Cavities), Gingivitis (DC), Toothache (ED) 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
== END 2023-09-16 14:27 | disposition home or self-care (01) ==
PROVIDERS: Emergency Provider Physician Assistant
DX: K02.9 Dental caries, unspecified (principal); K05.10 Chronic gingivitis, plaque induced; F17.210 Nicotine dependence, cigarettes, uncomplicated; F17.290 Nicotine dependence, other tobacco product, uncomplicated
CPT/HCPCS: 99284

== ENCOUNTER → 2023-12-17 11:31 | Outpatient (BNVA) | payer OTHER, SELFPAY | PROVIDERS: Visit Provider Registered Nurse Neonatal Intensive Care | DX: Z32.02 Encounter for pregnancy test, result negative (principal) | CPT/HCPCS: 81025 ==

== ENCOUNTER 2024-07-13 20:32 | Emergency (ER) | payer OTHER, MEDICAID, SELFPAY ==
[2024-07-13 20:53] VITALS: BP 118/75; PULSE 103; RESP 14; TEMP 36.8; O2SAT 99
--- NOTE | 2024-07-13 20:59 | ECG_ITS ---
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 Measurements Intervals [place] Rate: 101 P: 50 ND: 179 QRS: 73 QRSD: 91 T: 70 QT: 313 QTc: 406 Interpretive Statements SINUS TACHYCARDIA LOW QRS VOLTAGE IN PRECORDIAL LEADS [QRS DEFLECTION < 1.0 mV IN CHEST LEADS] SEPTAL MYOCARDIAL INFARCTION , PROBABLY OLD [40+ ms Q WAVE IN V1/V2] Compared to ECG 05/13/2023 13:16:04 Low QRS voltage now present Sinus rhythm no longer present Sinus arrhythmia no longer present Myocardial infarct finding still present Electronically Signed On 07-15-2024 00:59:45 PAPER CUP MACHINE TENDER by Jany Good M.D. [id number]
--- NOTE | 2024-07-13 21:12 | XRR_ITS ---
PROCEDURE INFORMATION: Exam: XR Chest Exam date and time: 07/13/2024 9:29 PM Age: 24 years old Clinical indication: Shortness of breath; Additional info: SOB TECHNIQUE: Imaging protocol: Radiologic exam of the chest. Views: 1 view. COMPARISON: CR XR chest 1V portable [id number] 05/13/2023 1:22 PM FINDINGS: Lungs: Calcified granulomas in the left lung base. No consolidation. Pleural spaces: Unremarkable. No pleural effusion. No pneumothorax. Heart/Mediastinum: Unremarkable. No cardiomegaly. Bones/joints: Unremarkable. XR/XR chest 1V portable [id number] IMPRESSION: No acute cardiopulmonary process.
--- NOTE | 2024-07-13 21:30 | ED_ITS ---
HPI - Anxiety General: Chief Complaint: Anxiety Stated Complaint: wants b/p taken, feel like having a panic attack Time Seen by Provider: 07/13/24 21:02 Source: patient Mode of arrival: ambulatory Limitations: no limitations History of Present Illness: 24-year-old female states she has had hi story of panic attacks feeling quite anxious. She states this started 45 minutes ago and is feels like her heart is racing and feeling shaky. She denies any fever denies any chest pain denies any cough denies any dyspnea Associated symptoms: Reports chest pain; Deny chills, fever(s), headache(s), nausea or vomiting Related Data Previous Rx's Medication Instructions Recorded amoxicillin 875 mg-potassium 1 tab PO BID 7 days #14 tabs 05/19/24 clavulanate 125 mg tablet Allergies Allergy/AdvReac Type Severity Reaction Status Date / Time prazosin Allergy Severe Makes bp Verified 07/13/24 20:57 skyrocket alprazolam [From Xanax] Allergy ADR-Anxiety Verified 07/13/24 20:57 venlafaxine AdvReac Intermediate ADR/ALGY-Pa Verified 07/13/24 20:57 lpitations Review of Systems Const: Denies: fever(s), chills, body aches or change in appetite ENMT: Denies: throat pain or dental pain Card: Reports: chest pain Resp: Denies: dyspnea GI: Denies: abdominal pain, nausea, vomiting or diarrhea Musc: Denies: neck pain or back pain Skin/Breast: Denies: rash Neuro: Denies: headache(s) Psych: Reports: anxiety PFSH ED PFSH: Medical History Major depressive disorder, recurrent episode with anxious distress Nicotine dependence, cigarettes, uncomplicated Generalized anxiety disorder Psychiatric care Social History Smoking and tobacco/nicotine status: unknown if used tobacco/nicotine Quit status (tobacco/nicotine): has tried quititng Number of times tried to quit tobacco: 3 Second hand smoke exposure: Yes Female Reproductive History: Date of last menstrual period: 07/06/24 Physical Exam Const: COMMON NORMALS: patient oriented x3 and healthy appearing GENERAL APPEARANCE: anxious HENMT: COMMON NORMALS: normocephalic and atraumatic HEAD & SCALP: normocephalic and atraumatic Eye: COMMON NORMALS: conjunctivae normal CONJUNCTIVA: Yes conjunctivae normal Neck/C-Spine: COMMON NORMALS: full ROM and supple Chest: COMMONS NORMALS: normal inspection of the chest Resp: COMMON NORMALS: normal respiratory effort, No retractions, No use of accessory muscles and clear to auscultation bilaterally AUSCULTATION: clear to auscultation bilaterally Cardio: COMMON NORMALS: regular rate, regular rhythm and No murmurs present (Cardio) RATE: regular rate RHYTHM: regular rhythm Extremity: COMMON NORMALS: normal to inspection and full ROM Neuro: COMMON NORMALS: patient oriented x3, moves all extremities and no focal motor deficits Psych: COMMON NORMALS: mental status grossly normal, Normal thought process present and cooperative MOOD & AFFECT: Yes anxious THOUGHT PROCESS: Normal thought process present Skin: COMMON NORMALS: no rashes or lesions noted and no wounds GENERAL SKIN EXAM: no rashes or lesions noted Course Vital Signs: Vital signs: Vital Signs Temperature 98.2 F 07/13/24 20:53 Pulse Rate 103 H 07/13/24 20:53 Respiratory Rate 14 07/13/24 20:53 Blood Pressure 118/75 07/13/24 20:53 Pulse Oximetry 99 07/13/24 20:53 Oxygen Delivery Me thod Room Air 07/13/24 20:53 MDM - Anxiety Medical Decision Making Patient presents here with anxiety she feels improved wanting to go home she has no signs of PE or cardiac cause she stable for discharge follow-up with PCP return if worsening. Medical Records I reviewed the patient's medical records. 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
[2024-07-13] MEDS: hyDROXYzine 25 mg Capsule 50 MG PO (21:35)
== END 2024-07-13 21:57 | disposition home or self-care (01) ==
PROVIDERS: Emergency Provider Emergency Medicine
DX: F41.9 Anxiety disorder, unspecified (principal)
CPT/HCPCS: 71045; 93005; 99284

== ENCOUNTER 2025-06-29 23:25 | Emergency (ER) | payer SELFPAY ==
--- OUTSIDE RECORDS SUMMARY | 2022-04-24 09:15 | XMS_ITS | Continuity of Care Document ---
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 Name Role Phone Tanner Wagner OD Unavailable Unavailable Allergies, Adverse Reactions, Alerts Substance Reaction Status Criticality No Known Allergies Active No Inform ation Medications Medication Instructions Dosage Effective Dates (start - stop) Status Comments WOMEN'S MULTIVITAMIN (unknown strength) Not Available - Active Procedures Procedure Date Oph Serv: Med Exam; Comp New Advance Directives Directive Yes / No Effective Date File Name No Information Encounters Encounter Description Practice Location Reason(s) For Visit Diagnoses Date Provider Providers Copied on Encounter [facility], [address] [place] [address], [id number], [facility], [place] employee exam (chief complaint) Emmetropia Kristy Hart. [address] [place] [address], [id number], . tel:[phone] Referring Provider: Tanner Kristy OD A, [address] [place] [address] [address], [place], [address] . tel:[phone] Family History Family Member Type Diagnosis Age At Onset Maternal grandfather Problem OPTIC NERVE ATROPHY Mother Problem OPTIC NERVE ATROPHY Payers Payer name Insurance type Covered republican ID Authoriza tion(s) No Information Social History Type Description Quantity Date Captured Comments Alcohol Use Details No Caffeine Use Details Unknown Tobacco Use Status Current non-smoker Smoking Status Never smoker Non-Smoking Tobacco Use Details : No Details Available : No Details Available Sex Female Chief Complaint And Reason For Visit From encounter dated '04/24/2022 15:15'. employee exam (chief complaint). Description: Patient presents for employee exam. Patient denies any changes in vision, pain or discomfort. Reason For Referral Reason For Referral No Information History Of Present Illness Encounter Date Complaint History Of Prese nt Illness employee exam Patient presents for employee exam. Patient denies any changes in vision, pain or discomfort. Functional Status Date Functional Assessmen t No Information Instructions Date Instruction Additional Infor mation Impression/Plan Related to Mina ropia Assessments Type Assessment Date assessment Emmetropia impression Refraction obtained Patient Care Teams Name Effective Dates (start - stop) Status Members No Information
--- OUTSIDE RECORDS SUMMARY | 2025-04-01 05:00 | XMS_ITS ---
Author Organization [facility] Address [address] [place] [address] Care Team Providers Care Pasteuriser Operator Name Role Phone Kel Butler Primary Care Provider [phone] Charlie Cornelius Unavailable [phone] REASON FOR VISIT ref/x - R/S does not have transportation Encounters Encounter Location Date Provider Diagnosis [facility] [address] [place] [address] 04/01/2025 Charlie Lux Plan Of Treatment No Information Progress Notes * NURIS MAJOROB:2000 (25 yo F)Acc No.[id number]:04/01/2025 Patient: Naa MAYALIZA JOVANI Provider: Conor Lux DDS :2000 A ge:24 Y S ex:Female Date:04/01/2025 Phone: Address:[address] [place] [address] Pcp:Kel Butler Subjective: * Chief Complaints: * r ef/x - R/S does not have transportation Billing Information: * Procedure Codes: * Electronic signature of Bryan Lux on 06/29/2025 at 11:28 PM PERCH MENDER Sign off status: Pending * Provider: Conor Lux DDS Date: 0 04/01/2025 Generated for Printi ng/Faxing/eTransmitting on: 1 08/29/2024 11:28 PM PERCH MENDER
--- OUTSIDE RECORDS SUMMARY | 2025-06-29 23:29 | XMS_ITS | Patient Health Record ---
Author Organization [facility] Address [address] [place] [address] Care Team Providers Care Oracle Business Intelligence Developer Name Role Phone Kel Butler Primary Care Provider [phone] Charlie Lux Unavailable [phone] Allergies Allergen (clinical drug ingredient) Drug/Non Drug Allergy documented on EMR Reaction Allergy Type Onset Date Status clindamycin Clindamycin HCl Unknown Drug Allergy Active Reason For Referral No Information Medications Medication SIG (Take, Route, Fr equency, Duration) Notes Start Date End Date Status hydrALAZINE HCl Acti ve Encounters Encounter Location Date Provider Diagnosis (Do Not Use) [facility] [address] [place] [address] 02/23/2025 Kel Butler Plan Of Treatment No Information Insurance Providers Payer Name Payer Address Payer Phone Subscriber Number Group Number Insured Name Patient Relationship to Insured Coverage Start Date Coverage End Date [facility] [employer] [address] [place] [address] [id number] JOVANI MAJOR Self - patient is the insured [facility] [employer] of [place] [address] [place] [phone] [id number] JOVANI MAJOR Self - patient is the insured Medical (General) History Medical History History ICD Code iron deficiency anemia anxiety depression PTSD
[2025-06-30 00:18] VITALS: BP 110/77; PULSE 80; RESP 16; TEMP 36.9; O2SAT 99; BMI 23.8
[2025-06-30 00:22] VITALS: BP 110/77; PULSE 80; RESP 16; TEMP 36.9; O2SAT 99
--- NOTE | 2025-06-30 01:06 | ED_ITS ---
HPI - Dental/Oral 2 General: Chief complaint: Dental/Oral Stated complaint: Rt side teeth pain Time Seen by Provider: 06/30/25 00:49 History of Present Illness: Patient is a pleasant 25-year-old female, presents today for dental abscesses, 3 on molars upper, lower on right, and left. She is able to open her mouth. She is waiting on her dental appointment next week. Her primary care physician called her in Augmentin 875 every 12 hours today. She is having ongoing pain. She is taking ibuprofen 800 mg every 6-8 hours to help with pain. She wants to avoid a narcotic, however would like some pain control. She has not had any fevers. She is tired of her dental pain. Patient is also waiting for insurance to approve her surgery for her dental abscesses. She is frustrated, and certainly understandable. Associated symptoms: Reports odynophagia; Denies fever(s) Related Data Previous Rx's ?Medication ?Instructions ?Recorded amoxicillin 875 mg-potassium 1 tab PO BID 7 days #14 t abs 05/19/24 clavulanate 125 mg tablet methocarbamol 750 mg tablet 750 mg PO Q8H PRN muscle s pasm #30 06/30/25 tabs ondansetron 4 mg disintegrating 4 mg PO Q8H PRN nausea and 06/30/25 tablet vomiting 4 days #14 tabs Allergies Allergy/AdvReac Type Severity Reaction Status Date / Time prazosin Allergy Severe Makes bp Verified 07/13/24 20:57 skyrocket alprazolam (From Xanax) Allergy ADR-Anxiety Verified 07/13/24 20:57 clindamycin Allergy Unknown Verified 06/30/25 00:25 venlafaxine AdvReac Intermediate ADR/ALGY-Pa Verified 07/13/24 20:57 lpitations Review of Systems 2 General: Reports: 10 or more systems reviewed and unremarkable except in HPI and below Const: Denies: fever(s), chills, body aches or change in appetite ENMT: Reports: odynophagia, mouth pain, dental pain and halitosis; Denies: throat pain, hoarseness, swelling of lips/tongue, bleeding gums, nasal discharge or nasal congestion Card: Reports: chest pain Resp: Denies: dyspnea GI: Denies: abdominal pain, nausea, vomiting or diarrhea : Denies: flank pain or difficulty voiding Musc: Denies: neck pain or back pain Skin/Breast: Denies: rash Neuro: Denies: headache(s) Psych: Reports: anxiety PFSH ED 2 PFSH: Medical History (Updated 06/30/25 @ 01:14 by ZEINA Jang) Major depressive disorder, recurrent episode with anxious distress Nicotine dependence, cigarettes, uncomplicated Generalized anxiety disorder Social History Smoking and tobacco/nicotine status: current every day tobacco/nicotine user cigarettes Packs smoked per day: 0.25 Years cigarettes smoked: 6 and e- cigarettes E-Cigarette Details: e-cigarette and with nicotine Quit status (tobacco/nicotine): has tried quititng Number of times tried to quit tobacco: 3 Second hand smoke exposure: Yes Female Reproductive History: Date of last menstrual period: 06/19/25 Physical Exam 2 Const: COMMON NORMALS: no acute distress, average body habitus and patient oriented x3 HENMT: TEETH & GINGIVA IMAGES: 1. Dental caries and partial fractures 2. Mild edema with redness 3. See #1 4. See #1 5. See #1 6. Mild local edema Resp: COMMON NORMALS: normal respiratory effort, No retractions and No use of accessory muscles Cardio: COMMON NORMALS: regular rate and regular rhythm RATE: regular rate RHYTHM: regular rhythm GI: COMMON NORMALS: Normal to inspection, nondistended, normoactive bowel sounds present, Soft to palpation, non-tender and No hepatosplenomegaly present PALPATION: Yes Soft to palpation and Yes No hepatosplenomegaly present : COMMON NORMALS: Yes no CVA tenderness BLADDER/KIDNEY EXAM: Yes no CVA tenderness Back/Pelvis: COMMON NORMALS: no CVA tenderness, thoracic and lumbar spine normal to inspection, no thoracic nor lumbar tenderness and thoraco-lumbar ROM normal Extremity: COMMON NORMALS: normal to inspection, full ROM and capillary refill normal Neuro: COMMON NORMALS: patient oriented x3 Psych: COMMON NORMALS: mental status grossly normal, Normal thought process present and cooperative THOUGHT PROCESS: Normal thought process present Course 2 Vital Signs: Vital signs: Vital Signs Temperature 98.4 F 06/30/25 00:22 Pulse Rate 80 06/30/25 00:22 Respiratory Rate 16 06/30/25 00:22 Blood Pressure 110/77 06/30/25 00:22 Pulse Oximetry 99 06/30/25 00:22 Oxygen Delivery Me thod Room Air 06/30/25 00:22 MDM - Dental/Oral Medical Decision Making The patient and I discussed multiple modalities. We do not have dental coverage here in the ER, however I have offered incision and drainage if there is an area amicable to this, which is less likely without trismus, dental block, however this is short-term, especially on her bottom right jaw for pain control, Toradol, Norflex, and hydrocodone x 1. She wants to avoid any medication that would cause issues with her driving home. She is utilizing ice locally. She will continue this. I have discussed that heat will help with bringing out abscess if this is an issue. There is no appreciable abscess at this time. She has localized swelling to her first, second molars on uppers and lowers. I have discussed taking additional Augmentin after 8 hours. Ultimately, antibiotics working will be the best pain control. Patient agrees that the best idea for her is to have a muscle relaxer once she gets home, combined with her ibuprofen 800 mg, and Tylenol. She will ice this area, and attempt heat if an abscess can raise that we cannot see at this time. She will return to ED if there is further issues. I have also encouraged probiotic, active culture yogurt to avoid/lessen chances of infectious diarrhea. Medical Records I reviewed the patient's medical records. No radiology studies performed this visit Discharge Plan Discharge Patient Disposition: Home Clinical Impression: Dental caries, Gingival abscess Condition: Stable Prescriptions: New methocarbamol 750 mg tablet 750 mg PO Q8H PRN (Reason: muscle spasm) Qty: 30 0RF ondansetron 4 mg tablet,disintegrating 4 mg PO Q8H PRN (Reason: nausea and vomiting) 4 Days Qty: 14 0RF No Action amoxicillin-pot clavulanate 875-125 mg tablet 1 tab PO BID 7 Days Qty: 14 0RF Discharge Orders: Discharge ED (Routine); Ordered 06/30/25 Ordered By: Mirna Song Referrals: Colten Ramirez MD [Primary Care Provider, Family Practice] Discharge Diet: Soft Mechanical Discharge Activity: Resume usual activity Patient Instructions: Dental Abscess (ED), Patient Portal & [facility] Instructions Activity Restrictions/Additional Instructions: - Methocarbamol/Robaxin: A muscle relaxer was sent home with you. Use as directed. This was also sent to your pharmacy to help with pain. - As we discussed, you can take your Tylenol, ibuprofen together. You can also utilize ice for pain. Heat will bring any abscess to the top where it is more amendable to draining. - As we discussed, I did recommend active culture yogurt or a daily probiotic to avoid/lessen chances of infectious diarrhea with antibiotics. - Continue with your dental appointment next week. - Soft foods. - Zofran/ondansetron was sent to the pharmacy to help with any nausea - Continue with your dental appointment next week - Return to ED: If you are unable to open your mouth, fever greater than 100.4 ?F, unable to swallow Thank you for choosing [facility] for your healthcare needs today. You have been screened and evaluated and felt safe for discharge. Health conditions do change or evolve sometimes and as such it is important that you follow up with your Primary Doctor to be re checked, 3-5 days is a general good time frame for follow up. 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
--- NOTE | 2025-06-30 01:30 | PC.NURSE ---
meds were sent home with pt per provider
== END 2025-06-30 01:34 | disposition home or self-care (01) ==
PROVIDERS: Emergency Provider Physician Assistant; PCP Family Medicine
DX: K02.9 Dental caries, unspecified (principal); K05.20 Aggressive periodontitis, unspecified; F17.210 Nicotine dependence, cigarettes, uncomplicated
CPT/HCPCS: 99283; J9999